=== PATIENT | male | born 1950 | race Caucasian/White ===

== ENCOUNTER 2016-09-15 17:08 | Inpatient (IN) | payer OTHER ==
[~2016-09-15] VITALS: Ht 177.8 cm; Wt 104.9 kg
[~2016-09-15 17:08] MED LIST: ANDROGEL1.25 GM TD; METAMUCIL PACKE1 PKT PO; MIRALAX17 GM PO; OXYCONTIN10 MG PO; PERCOCET 10/1 TABLET PO; PRILOSEC20 MG PO; PROMETHAZINE HC25 M1 PO; SENNA8.6 MG PO; STOOL SOFTENER1 EAC1 PO
[2016-09-15] MEDS ORDERED: OXYCONTIN10 MG PO (17:37)
[2016-09-15 17:39] LABS: HEMATOCRIT 48.6 % (38.0-50.0); MCH 30.3 PG (29.0-34.0); MCHC 32.7 G/DL (30.0-36.0); MCV 92.7 FL (86-99); MEAN PLAT.VOLUME 9.3 uM^3 (9.0-12.4); PLATELET COUNT 257 K/uL (156-360); RBC DIS.WIDTH-CV 12.4 % (11.8-14.6); RBC DIS.WIDTH-SD 42.6 % (39-53); RED BLOOD COUNT 5.24 M/uL (4.00-5.50)
[2016-09-15 17:48] LABS: CHLORIDE 98 mEq/L (99-109); POTASSIUM 3.7 mEq/L (3.7-5.4); SODIUM 135 mEq/L (136-147)
[2016-09-15 17:49] LABS: GLUCOSE 111 mg/dL (70-99)
[2016-09-15 17:51] LABS: ANION GAP 10 MEQ/L (2-14)
[2016-09-15 17:53] LABS: GFR ESTIMATE (CALCULATED) > 59 mL/min/
[2016-09-15 17:54] LABS: UREA NITROGEN (BUN) 7 mg/dL (9-23)
[2016-09-15 18:00] LABS: TROP-I INTERPRETATION NEGATIVE; TROPONIN-I < 0.01 ng/mL (0.0-0.30)
[2016-09-15] MEDS ORDERED: IBUPROFEN200 M1 PO (20:19)
[2016-09-15] MEDS ORDERED: LIDODERM 5% P1 PATCH TD (20:19)
[2016-09-15] MEDS ORDERED: ALEVE220 MG PO (20:19)
[2016-09-15 21:29] LABS: ADD MIUA? YES; BILIRUBIN NEGATIVE; BLOOD MODERATE; COLOR YELLOW ((YELLOW)); GLUCOSE (STRIP) NEGATIVE; KETONES NEGATIVE; LEUKOCYTES NEGATIVE; NITRITE NEGATIVE; PROTEIN (STRIP) NEGATIVE; SPECIFIC GRAVITY 1.035 (1.000-1.030); UROBILINOGEN 0.2 MG/DL (0.2-1.0)
[2016-09-15 21:37] LABS: INFLUENZA A VIRAL ANTIGEN NEGATIVE; INFLUENZA B VIRAL ANTIGEN NEGATIVE
[2016-09-15 22:03] LABS: BACTERIA NONE SEEN /HPF; EPITHELIAL CELLS RARE /HPF; MUCUS NONE SEEN /LPF; UCUL ADDED? NO; WHITE BLOOD CELLS 0-5 /HPF (0-5)
[2016-09-15 22:05] LABS: CASTS NONE SEEN /LPF; CRYSTALS NONE SEEN
[2016-09-15 22:17] VITALS: BP 135/77
[2016-09-16 00:07] VITALS: BP 137/80
[2016-09-16 06:25] LABS: EOSINOPHIL (%) 0 % (0-5); HEMATOCRIT 45.7 % (38.0-50.0); IMMATURE GRANULOCYTE (%) 0.5 % (0.0-0.7); IMMATURE GRANULOCYTE COUNT 0.1 K/uL; INSTRUMENT ABS NEUTROPHIL CT 13.2 K/uL; LYMPHOCYTE COUNT 0.5 K/uL (1.0-2.8); MCHC 32.6 G/DL (30.0-36.0); MCV 92.1 FL (86-99); MEAN PLAT.VOLUME 9.4 uM^3 (9.0-12.4); MONOCYTE (%) 1.4 % (3-12); MONOCYTE COUNT 0.2 K/uL (0-0.8); NEUTROPHIL (%) 94.3 % (45-76); NEUTROPHIL COUNT 13.2 K/uL (1.8-6.4); PLATELET COUNT 266 K/uL (156-360); RBC DIS.WIDTH-CV 12.4 % (11.8-14.6); RBC DIS.WIDTH-SD 42.2 % (39-53); RED BLOOD COUNT 4.96 M/uL (4.00-5.50)
[2016-09-16 06:45] LABS: ANION GAP 6 MEQ/L (2-14); CHLORIDE 97 MEQ/L (99-109); GFR ESTIMATE (CALCULATED) > 59 mL/min/; GLUCOSE 164 mg/dL (70-99); POTASSIUM 4.1 MEQ/L (3.7-5.4); SAMPLE HEMOLYSIS CHECK 0; SAMPLE ICTERIC CHECK 0; SAMPLE LIPEMIA CHECK 0; SODIUM 135 MEQ/L (136-147); UREA NITROGEN (BUN) 7 mg/dL (9-23)
[2016-09-16 06:57] VITALS: BP 116/58
[2016-09-16 08:41] LABS: INTERNAL CONTROL VALID? YES
[2016-09-16 18:05] VITALS: BP 119/65
[2016-09-16 21:05] LABS: EOSINOPHIL (%) 0 % (0-5); HEMATOCRIT 47.1 % (38.0-50.0); IMMATURE GRANULOCYTE (%) 1.4 % (0.0-0.7); IMMATURE GRANULOCYTE COUNT 0.3 K/uL; INSTRUMENT ABS NEUTROPHIL CT 20.6 K/uL; LYMPHOCYTE COUNT 0.8 K/uL (1.0-2.8); MCHC 32.5 G/DL (30.0-36.0); MCV 92.4 FL (86-99); MEAN PLAT.VOLUME 9.5 uM^3 (9.0-12.4); MONOCYTE (%) 3.6 % (3-12); MONOCYTE COUNT 0.8 K/uL (0-0.8); NEUTROPHIL (%) 91.5 % (45-76); NEUTROPHIL COUNT 20.6 K/uL (1.8-6.4); PLATELET COUNT 293 K/uL (156-360); RBC DIS.WIDTH-CV 12.5 % (11.8-14.6); RBC DIS.WIDTH-SD 42.5 % (39-53)
[2016-09-16 21:06] LABS: WHITE BLOOD COUNT 22.5 K/uL (4.1-10.2)
[2016-09-16 21:10] LABS: ANION GAP 12 MEQ/L (2-14); CHLORIDE 97 MEQ/L (99-109); POTASSIUM 3.5 MEQ/L (3.7-5.4); SAMPLE HEMOLYSIS CHECK 0; SAMPLE ICTERIC CHECK 0; SAMPLE LIPEMIA CHECK 0; SODIUM 135 MEQ/L (136-147); TOTAL BILIRUBIN 0.4 MG/DL (0.0-1.0)
[2016-09-16 21:16] LABS: ALKALINE PHOSPHATASE 62 IU/L (3-129); GFR ESTIMATE (CALCULATED) > 59 mL/min/; GLUCOSE 223 mg/dL (70-99); UREA NITROGEN (BUN) 18 mg/dL (9-23)
[2016-09-16 21:20] VITALS: BP 140/70
[2016-09-16 21:20] LABS: TROP-I INTERPRETATION NEGATIVE; TROPONIN-I 0.01 ng/mL (0.0-0.30)
[2016-09-16 21:26] LABS: INTER. NORMALIZED RATIO 1.2; PROTHROMBIN TIME 11.8 (9.2-11.2); PTT 32.6 (25-32)
[2016-09-16 23:58] VITALS: BP 125/63
[2016-09-17 04:36] LABS: TROP-I INTERPRETATION NEGATIVE; TROPONIN-I < 0.01 ng/mL (0.0-0.30)
[2016-09-17 05:08] VITALS: BP 125/77
[2016-09-17 08:30] VITALS: BP 133/71
[2016-09-17 08:40] LABS: EOSINOPHIL (%) 0 % (0-5); HEMATOCRIT 45.8 % (38.0-50.0); IMMATURE GRANULOCYTE COUNT 0.3 K/uL; INSTRUMENT ABS NEUTROPHIL CT 24.1 K/uL; LYMPHOCYTE COUNT 0.8 K/uL (1.0-2.8); MCH 29.8 PG (29.0-34.0); MCHC 32.3 G/DL (30.0-36.0); MCV 92.3 FL (86-99); MEAN PLAT.VOLUME 9.6 uM^3 (9.0-12.4); MONOCYTE COUNT 0.8 K/uL (0-0.8); NEUTROPHIL (%) 92.8 % (45-76); NEUTROPHIL COUNT 24.1 K/uL (1.8-6.4); PLATELET COUNT 331 K/uL (156-360); RBC DIS.WIDTH-CV 12.6 % (11.8-14.6); RBC DIS.WIDTH-SD 42.7 % (39-53); RED BLOOD COUNT 4.96 M/uL (4.00-5.50); WHITE BLOOD COUNT 25.9 K/uL (4.1-10.2)
[2016-09-17 09:16] LABS: ANION GAP 9 MEQ/L (2-14); CHLORIDE 99 MEQ/L (99-109); GFR ESTIMATE (CALCULATED) > 59 mL/min/; GLUCOSE 154 mg/dL (70-99); SAMPLE HEMOLYSIS CHECK 0; SAMPLE ICTERIC CHECK 0; SAMPLE LIPEMIA CHECK 0; SODIUM 136 MEQ/L (136-147); UREA NITROGEN (BUN) 16 mg/dL (9-23)
[2016-09-17 09:18] LABS: POTASSIUM 4.4 MEQ/L (3.7-5.4)
[2016-09-17 09:21] LABS: TROP-I INTERPRETATION NEGATIVE; TROPONIN-I < 0.01 ng/mL (0.0-0.30)
[2016-09-17 12:00] VITALS: BP 117/74
[2016-09-17 17:01] VITALS: BP 129/62
[2016-09-17 20:05] VITALS: BP 120/84
[2016-09-18] VITALS (7 sets, daily range): BP systolic 124–136; BP diastolic 58–78
[2016-09-18 06:00] LABS: EOSINOPHIL (%) 0 % (0-5); HEMATOCRIT 43.3 % (38.0-50.0); IMMATURE GRANULOCYTE (%) 0.8 % (0.0-0.7); IMMATURE GRANULOCYTE COUNT 0.2 K/uL; INSTRUMENT ABS NEUTROPHIL CT 19.9 K/uL; LYMPHOCYTE COUNT 0.7 K/uL (1.0-2.8); MCH 29.6 PG (29.0-34.0); MCHC 31.6 G/DL (30.0-36.0); MCV 93.5 FL (86-99); MEAN PLAT.VOLUME 9.5 uM^3 (9.0-12.4); MONOCYTE COUNT 0.7 K/uL (0-0.8); NEUTROPHIL (%) 92.8 % (45-76); NEUTROPHIL COUNT 19.9 K/uL (1.8-6.4); PLATELET COUNT 333 K/uL (156-360); RBC DIS.WIDTH-CV 12.7 % (11.8-14.6); RED BLOOD COUNT 4.63 M/uL (4.00-5.50); WHITE BLOOD COUNT 21.5 K/uL (4.1-10.2)
[2016-09-18 06:31] LABS: ANION GAP 9 MEQ/L (2-14); CHLORIDE 99 MEQ/L (99-109); GFR ESTIMATE (CALCULATED) > 59 mL/min/; GLUCOSE 162 mg/dL (70-99); POTASSIUM 4.7 MEQ/L (3.7-5.4); SAMPLE HEMOLYSIS CHECK 0; SAMPLE ICTERIC CHECK 0; SAMPLE LIPEMIA CHECK 0; SODIUM 138 MEQ/L (136-147); UREA NITROGEN (BUN) 23 mg/dL (9-23)
[2016-09-18 07:30] LABS: POINT-OF-CARE METER ID UU13113781
[2016-09-18 11:21] LABS: POINT-OF-CARE METER ID UU13113781
[2016-09-19 05:05] VITALS: BP 103/52
[2016-09-19 07:15] VITALS: BP 106/67
[2016-09-19 08:06] LABS: POINT-OF-CARE METER ID UU14174216; POINT-OF-CARE USER ID NUTSLF44
[2016-09-19 11:51] LABS: POINT-OF-CARE USER ID NUTSLF44
[2016-09-19 11:57] VITALS: BP 131/60
[2016-09-19 15:20] VITALS: BP 112/65
[2016-09-19 20:02] VITALS: BP 128/65
[2016-09-19 20:40] LABS: POINT-OF-CARE METER ID UU14174216
[2016-09-20 04:00] VITALS: BP 133/77
[2016-09-20 07:09] VITALS: BP 134/65
[2016-09-20 07:42] LABS: POINT-OF-CARE METER ID UU14174216
[2016-09-20 11:29] LABS: POINT-OF-CARE METER ID UU14174216
[2016-09-20 12:20] VITALS: BP 137/77
[2016-09-20 15:14] VITALS: BP 129/66
[2016-09-20 16:24] LABS: POINT-OF-CARE METER ID UU14174216
[2016-09-20 22:44] VITALS: BP 136/72
[2016-09-21 05:36] LABS: POINT-OF-CARE METER ID UU13113725
[2016-09-21 09:50] VITALS: BP 130/68
[2016-09-21] MEDS ORDERED: SPIRIVA RESPIMAT4 GM IH (09:51)
[2016-09-21] MEDS ORDERED: NICOTINE PATCH1 EAC1 TD (09:52)
[2016-09-21] MEDS ORDERED: TYLENOL REGULA325 MG PO (09:52)
[2016-09-21] MEDS ORDERED: CARDIZEM CD120 MG PO (09:52)
[2016-09-21] MEDS ORDERED: ADVAIR HFA120 INHAL1 IH (09:53)
[2016-09-21] MEDS ORDERED: GABAPENTIN300 MG PO (09:53)
[2016-09-21] MEDS ORDERED: BUPROPION HCL150 M2 PO (09:53)
[2016-09-21] MEDS ORDERED: METFORMIN HCL500 M4 PO (09:56)
[2016-09-21] MEDS ORDERED: PREDNISONE10 MG PO (09:58)
[2016-09-21] MEDS ORDERED: PROAIR RESPICL90 MCG IH (10:04)
[2016-09-21 11:14] LABS: POINT-OF-CARE METER ID UU13113725
== END 2016-09-21 13:53 | disposition home or self-care (01) | DRG 190 ==
LOC: EME 17:08 → EDOF 20:20 → 4EAST 20:20 → 5EAST 20:20 → 4EAST 09-16 21:05 → 5EAST 09-20 17:19
PROVIDERS: Emergency Medicine; Family Medicine Sports Medicine; Internal Medicine
DX: J44.1 Chronic obstructive pulmonary disease with (acute) exacerbation (principal); J18.9 Pneumonia, unspecified organism; F17.210 Nicotine dependence, cigarettes, uncomplicated; I48.91 Unspecified atrial fibrillation; R09.02 Hypoxemia; R00.0 Tachycardia, unspecified; G89.29 Other chronic pain; J20.9 Acute bronchitis, unspecified; G62.9 Polyneuropathy, unspecified; I10 Essential (primary) hypertension; D17.9 Benign lipomatous neoplasm, unspecified; M19.90 Unspecified osteoarthritis, unspecified site; R59.0 Localized enlarged lymph nodes; M25.511 Pain in right shoulder; Z90.89 Acquired absence of other organs; M54.9 Dorsalgia, unspecified
CPT/HCPCS: 71020; 71275; 80048; 80053; 81003; 82948; 83605; 84443; 84484; 85025; 85025 91; 85027; 85610; 85730; 87040; 87070; 87205; 87449; 87502; 87651 90; 93005; 93306; 94010; 94640; 94640 76; 94760; 94799; 99202; 99281; 99285; J0456; J0696; J1650; J1815; J2930; J3480; J7050; J7512

== ENCOUNTER 2017-08-26 18:44 | Emergency (ER) | payer OTHER ==
[~2017-08-26] VITALS: Ht 177.8 cm; Wt 98.8 kg
[~2017-08-26 18:44] MED LIST changes: +ADVAIR HFA120 INHAL1 IH; +ALEVE220 MG PO; +BUPROPION HCL150 M2 PO; +CARDIZEM CD120 MG PO; +GABAPENTIN300 MG PO; +IBUPROFEN200 M1 PO; +LIDODERM 5% P1 PATCH TD; +METFORMIN HCL500 M4 PO; +NICOTINE PATCH1 EAC1 TD; +PREDNISONE10 MG PO; +PROAIR RESPICL90 MCG IH; +SPIRIVA RESPIMAT4 GM IH; +TYLENOL REGULA325 MG PO
[2017-08-26 21:19] VITALS: BP 139/74
== END 2017-08-26 21:19 | disposition home or self-care (01) ==
LOC: EME 18:44
DX: M54.32 Sciatica, left side (principal); M25.552 Pain in left hip; F17.200 Nicotine dependence, unspecified, uncomplicated
CPT/HCPCS: 73502; 99281; 99284; J1885; J2270